=== PATIENT | female | born 1960 | race Two or more races ===

== ENCOUNTER 2019-12-18 07:28 | Day surgery (SDC) | payer BC ==
[2019-12-18] VITALS (9 sets, daily range): BP systolic 116–143; BP diastolic 60–80
[~2019-12-18] VITALS: Ht 154.9 cm; Wt 63.5 kg
[~2019-12-18 07:28] MED LIST: Midazolam 2mg/2ml Inj ONE; fentaNYL 100 mcg/2 mL IV ONE
--- NOTE | 2019-12-18 08:56 | Pre-Procedure Note/Attestation ---
Pre-Procedure Note/Attestation Complete Prior to Procedure Planned Procedure: not applicable Procedure Narrative: esophagogastroduodenoscopy and colonoscopy Indications for Procedure Pre-Operative Diagnosis: screening colon, GERD Attestation I attest that I discussed the nature of the procedure; its benefits; risks and complications; and alternatives (and the risks and benefits of such alternatives ), prior to the procedure, with the patient (or the patient's legal textile machinery sales representative). I attest that, if there was a reasonable possibility of needing a blood transfusion, the patient (or the patient's legal textile machinery sales representative) was given the [facility] standardized written summary, pursuant to the [place] Blood Safety Act ([place] Health and Safety Code # 1645, as amended). I attest that I re-evaluated the patient just prior to the surgery and that there has been no change in the patient's H&P, except as documented below: Jay Stanton MD Dec 18, 2019 08:56
--- NOTE | 2019-12-18 08:57 | Short Stay Surgery H&P ---
History of Present Illness History of Present Illness Chief Complaint screening colon, GERD HPI Christina Jiménez is a 59 year old female who was admitted on for Screening Colon Patient History PAST MEDICAL HISTORY: (1) Hypercholesteremia Medication History No Active Prescriptions or Reported Meds Review of Systems Cardiovascular: Reports: no symptoms Respiratory: Reports: no symptoms Skeletal: Reports: no symptoms Gastrointestinal: Reports: no symptoms, gastro esophageal reflux disease Genitourinary: Reports: no symptoms Neurologic: Reports: no symptoms Endocrine: Reports: no symptoms Hematologic: Reports: no symptoms Physical Exam Vital Signs Last Vital Signs Date Time Temp Pulse Resp B/P (MAP) Pulse Ox O2 Delivery O2 Flow Rate FiO2 12/18/19 08:23 98.1 68 18 143/80 98 Room Air Skin: normal HENT: normal Heart: normal Lungs: normal Abdomen: normal Extremities: normal Plan Plan of Care esophagogastroduodenoscopy and colonoscopy Attestation Are the patient's medical conditions optimized for surgery? Attestation Response: yes Jay Stanton MD Dec 18, 2019 08:57
[2019-12-18] MEDS ORDERED: LR 1000ml ONE (09:00)
[2019-12-18] MEDS ORDERED: Propofol 200mg/20ml IV ONE (09:00)
--- NOTE | 2019-12-18 09:19 | Anethesia Preoperative Eval ---
Anesthesia Pre-op PMH/ROS General Date of Evaluation: Dec 18, 2019 Time of Evaluation: 09:16 Anesthesiologist: Maritza ASA Score: ASA 2 Mallampati Score Class I : Soft palate, uvula, fauces, pillars visible Class II: Soft palate, uvula, fauces visible Class III: Soft palate, base of uvula visible Class IV: Only hard plate visible Mallampati Classification: Class II Surgeon: Maximino Diagnosis: Abdominal pain Surgical Procedure: EGD [id number] Anesthesia History: none Family History: no anesthesia problems Medications: see eMAR Patient NPO?: Yes Past Medical History Cardiovascular: Denies: HTN, CAD, NV, valve dz, arrhythmia, other Pulmonary: Denies: asthma, COPD, LINDSEY, other Gastrointestinal/Genitourinary: Reports: GERD; Denies: CRI, ESRD, other Neurologic/Psychiatric: Denies: dementia, CVA, depression/anxiety, TIA, other Endocrine: Denies: DM, hypothyroidism, steroids, other HEENT: Denies: cataract (L), cataract (R), glaucoma, [place] (L), RED CLIFF (R), other Hematology/Immune: Denies: anemia, DVT, bleeding disorder, other Musculoskeletal/Integumentary: Denies: OA, RA, DJD, DDD, edema, other PMH Narrative: as above PSxH Narrative: Hernia repair Anesthesia Pre-op Phys. Exam Physician Exam Last Vital Signs Date Time Temp Pulse Resp B/P (MAP) Pulse Ox O2 Delivery O2 Flow Rate FiO2 12/18/19 08:23 98.1 68 18 143/80 98 Room Air Constitutional: NAD Neurologic: CN 2-12 intact Cardiovascular: RRR, no M/R/G Respiratory: CTA Gastrointestinal: S/NT/ND Airway Exam Mallampati Score: Class II MO: full Neck: flexible ROM: full Teeth: intact Dentures: no upper, no lower Anesthesia Pre-op A/P Studies Pre-op Studies: EKG - NSR Risk Assessment & Plan Assessment: ASA 2 Plan: MAC Status Change Before Surgery: Blaise Rose MD Dec 18, 2019 09:19
--- NOTE | 2019-12-18 09:35 | Endoscopy Procedure Note ---
Endoscopy Procedure Note General Indication for Procedure: screening colon, GERD Procedures Performed: EGD, colonoscopy Operative Findings/Diagnosis: 3 polyps Specimen: yes Pt Tolerated Procedure Well: Yes Estimated Blood Loss: none Anesthesia Anesthesiologist: andrew Anesthesia: MAC Inserted Devices Implant(s) used?: No Quality Quality of Bowel Preparation: Good Did scope reach the cecum?: Yes Was there any complications?: No GI Core Measures 50 yrs or older w/o bx or poly: No 10yrs. F/U recommended: Yes If not recommended, why?: Above average risk 18 years or older w/prev. colo: No Jay Stanton MD Dec 18, 2019 09:35
--- NOTE | 2019-12-18 09:38 | Immediate Post-Op Evaluation ---
Immediate Post-Op Evalulation Immediate Post-Op Evalulation Procedure: EGD Colonoscopy polypectomy Date of Evaluation: Dec 18, 2019 Time of Evaluation: 09:37 IV Fluids: 700 Blood Products: none Estimated Blood Loss: none Urinary Output: none Blood Pressure Systolic: 127 Blood Pressure Diastolic: 74 Pulse Rate: 69 Respiratory Rate: 20 O2 Sat by Pulse Oximetry: 99 Temperature (Fahrenheit): 97.5 Pain Score (1-10): 1 Nausea: No Vomiting: No Complications none Patient Status: reacts, patent, none Hydration Status: adequate Blaise Salas MD Dec 18, 2019 09:38
--- NOTE | 2019-12-18 13:29 | 48 Hour Post Anesthesia Eval ---
Post Anesthesia Evaluation Procedure: EGD Colonoscopy polypectomy Date of Evaluation: Dec 18, 2019 Time of Evaluation: 11:40 Blood Pressure Systolic: 116 0: 72 Pulse Rate: 68 Respiratory Rate: 20 Temperature (Fahrenheit): 97.4 O2 Sat by Pulse Oximetry: 99 Airway: patent Nausea: No Vomiting: No Pain Intensity: 1 Hydration Status: adequate Cardiopulmonary Status: stable Mental Status/LOC: patient returned to baseline Follow-up Care/Observations: n/a Post-Anesthesia Complications: none Follow-up care needed: ready to discharge Blaise Salas MD Dec 18, 2019 13:29
--- NOTE | 2019-12-18 15:45 | Procedure Note ---
DATE OF PROCEDURE: 12/18/2019 SURGEON: Jay Stanton M.D. PROCEDURE: Upper endoscopy with biopsy and colonoscopy with snare polypectomy and biopsy. ANESTHESIA: Per Dr. Salas. INSTRUMENT: Olympus adult flexible upper endoscope and colonoscope. INDICATIONS: Screening colonoscopy and chronic GERD. REASON FOR PROCEDURE: The procedure, risks, benefits, and possible consequences, including hemorrhage, aspiration, perforation and infection, and alternative treatments, were explained to the patient/legal guardian by Dr. Jay Stanton and the patient/legal guardian understood and accepted these risks. PROCEDURE IN DETAIL: After informed consent was obtained and the patient was adequately sedated, Olympus upper endoscope was advanced from mouth into the second portion of the duodenum and retroflexion was performed in the stomach. The patient had evidence of diffuse gastritis, mild atrophic gastritis. Random biopsy from antrum and body was obtained to rule out H. pylori infection. The patient also had small gastric polyp in the body of the stomach, which was removed with cold biopsy forceps technique. The rest of the examination grossly within limits. The patient also had evidence of one small inlet patch in the upper esophagus. At this time, the patient was turned over for colonoscopy. First, rectal exam was performed, which was positive for external hemorrhoids and internal hemorrhoids. Then, the scope was advanced from the rectum into the cecum, then subcutaneous terminal ileum. Quality of prep was very good. The patient had one polyp measured roughly about 1.4 centimeter in the proximal ascending colon, pedunculated, removed with a hot snare polypectomy technique. There was another polyp in the transverse colon, looked relatively flat, measured roughly about 6 to 7 mm, removed with hot snare polypectomy technique. The patient also had one diminutive polyp in the transverse colon, removed with the cold biopsy forceps technique. The rest of the examination grossly looked within normal limits. Retroflexion of rectum showed evidence of internal hemorrhoids. SUMMARY OF FINDINGS: 1. Small inlet patch. 2. Gastritis, status post biopsy. 3. Gastric polyp, status post biopsy. 4. Three colonic polyps removed. See above for details. 5. Internal hemorrhoids. RECOMMENDATIONS: Follow up biopsy results and treat accordingly. We will recommend repeat colonoscopy in three years. Jay Rikki Stanton DR: KIYA JOB#: [id number] CC:
== END 2019-12-18 12:00 | disposition home or self-care (01) ==
LOC: GAS 07:28
DX: Z12.11 Encounter for screening for malignant neoplasm of colon (principal); K21.9 Gastro-esophageal reflux disease without esophagitis; K29.50 Unspecified chronic gastritis without bleeding; K63.5 Polyp of colon; K64.8 Other hemorrhoids; E78.00 Pure hypercholesterolemia, unspecified
CPT/HCPCS: 43239; 45380; 45385; 93005; J2250; J2704; J3010; J7120; 94003; 94150